=== PATIENT | female | born 1930 | race Caucasian/White ===

== ENCOUNTER 2017-12-20 16:03 | Emergency (ER) | payer OTHER ==
--- NOTE | 2017-12-20 16:49 | PDOC ---
Rapid Medical Evaluation Time Seen by Provider: 12/20/17 16:46 Medical Evaluation: Allergies Allergy/AdvReac Type Severity Reaction Status Date / Time Penicillins Allergy Verified 12/16/13 08:57 12/20/17 16:46 This 87 with c/o LUQ abd pain that started this AM. She has + bm this am that was hard Belly firm and slight pain. ordered AXR Pt sent to ER for evaluation
[2017-12-20 16:53] VITALS: BP 132/75; PULSE 81; TEMP 98.4; BMI 24.2
[2017-12-20 19:57] LABS: BASO % 0.4 % (0-2.0); EOS % 0.8 % (0-4.5); HEMATOCRIT 33.9 % (32.4-45.2); HEMOGLOBIN 11.5 GM/dL (10.7-15.3); LYMPH % 25.5 % (8-40); MEAN CELL VOLUME 88.2 fl (80-96); MEAN PLT VOLUME 7.9 fl (7.5-11.1); MONO % 9.3 % (3.8-10.2); PLATELET COUNT 389 K/MM3 (134-434); RBC 3.84 M/mm3 (3.60-5.2); RDW 15.4 % (11.6-15.6); WHITE BLOOD COUNT 7.3 K/mm3 (4.0-10.0)
[2017-12-20] MEDS ORDERED: DOCUSATE SODIUM 100 MG CAPSULE (FP) PO ONE ×2 (19:57→21:12)
[2017-12-20 20:36] LABS: ALBUMIN 3.7 g/dl (3.4-5.0); ALK PHOS 102 U/L (45-117); ANION GAP 5 (8-16); BILIRUBIN,TOTAL 0.4 mg/dL (0.2-1.0); BLOOD UREA NITROGEN 21 mg/dL (7-18); CALCIUM 9.1 mg/dL (8.5-10.1); CHLORIDE 106 mmol/L (98-107); CO2 28 mmol/L (21-32); CREATININE 1.1 mg/dL (0.55-1.02); GLUCOSE,RANDOM 89 mg/dL (74-106); LIPASE 145 U/L (73-393); POTASSIUM 4.5 mmol/L (3.5-5.1); SGOT/AST 18 U/L (15-37); SGPT/ALT 22 U/L (12-78); SODIUM 139 mmol/L (136-145); TOT PROT 7.4 g/dl (6.4-8.2)
--- NOTE | 2017-12-20 21:05 | PDOC ---
History of Present Illness - General Chief Complaint: Pain Stated Complaint: ABD PAIN Time Seen by Provider: 12/20/17 16:46 History Source: Patient Exam Limitations: No Limitations - History of Present Illness Travel History: No Initial Comments: 12/20/17 21:06 Best Contact: Shabana/Marielena [phone] Pmhx: Pancreas disorder/chronic constipation Pshx: 1998: Appendectomy, over 40 years ago total abdominal hysterectomy with salpingectomy and oophorectomy Allergies: NO KNOWN DRUG ALLERGIES 87-year-old female presents to the emergency department with her granddaughter complaining of right lower abdominal discomfort. Pain is described as 4/10 dull nonradiating intermittent discomfort. Patient states she had a bowel movement at approximately 0800 hrs. this morning which was small and hard. Patient denies nausea/vomiting, fever/chills, chest pain, shortness of breath, flank pain, urinary symptoms: Frequency/urgency/hesitancy, hematuria. Patient claims she does not drink enough fluids on a daily basis. Past History - Past Medical History Allergies/Adverse Reactions: Allergies Allergy/AdvReac Type Severity Reaction Status Date / Time Penicillins Allergy Verified 12/20/17 16:52 Home Medications: Ambulatory Orders Atorvastatin Ca [Lipitor -] 20 mg PO HS 12/16/13 Ergocalciferol (Vitamin D2) [Vitamin D2] 50,000 unit PO WEEKLY 12/16/13 Esomeprazole Mag Trihydrate [Nexium] 40 mg PO DAILY 12/16/13 Ibuprofen [Motrin -] 600 mg PO TID 12/16/13 Montelukast Na [Singulair -] 10 mg PO HS 12/16/13 Oxycodone HCl/Acetaminophen [Percocet 5-325 mg Tablet -] 1 - 2 tab PO Q6H #10 tablet 12/16/13 Solifenacin Succinate [Vesicare] 10 mg PO DAILY 12/16/13 Valsartan [Diovan] 80 mg PO DAILY 12/16/13 Asthma: Yes COPD: No GI Disorders: Yes (GERD) HTN: Yes Hypercholesterolemia: Yes - Surgical History Appendectomy: Yes - Suicide/Smoking/Psychosocial Hx Smoking History: Never smoked Have you smoked in the past 12 months: No Information on smoking cessation initiated: No Hx Alcohol Use: No Drug/Substance Use Hx: No Substance Use Type: None Review of Systems - Review of Systems Able to Perform ROS?: Yes Comments:: 12/20/17 21:09 CONSTITUTIONAL: Absent: fever, chills, diaphoresis, generalized weakness, malaise, loss of appetite HEENT: Absent: rhinorrhea, nasal congestion, throat pain, throat swelling, difficulty swallowing, mouth swelling, ear pain, eye pain, visual Changes CARDIOVASCULAR: Absent: chest pain, loss of consciousness, palpitations, irregular heart rate, peripheral edema RESPIRATORY: Absent: cough, shortness of breath, dyspnea with exertion, orthopnea, wheezing, stridor, hemoptysis GASTROINTESTINAL: +constipation Absent: abdominal pain, abdominal distension, nausea, vomiting, diarrhea, melena , hematochezia GENITOURINARY: Absent: dysuria, frequency, urgency, hesitancy, hematuria, flank pain, genital pain MUSCULOSKELETAL: Absent: myalgia, arthralgia, joint swelling SKIN: Absent: rash, itching, pallor Is the patient limited Chinese proficient: No *Physical Exam - Vital Signs Last Vital Signs Temp Pulse Resp BP Pulse Ox 98.4 F 81 16 132/75 97 12/20/17 16:48 12/20/17 16:48 12/20/17 16:48 12/20/17 16:48 12/20/17 16:48 - Physical Exam Comments: 12/20/17 21:10 GENERAL: Well developed, well nourished. Awake and alert. No acute distress. HEENT: Normocephalic, atraumatic. PERRLA, EOMI. No conjunctival pallor. Sclera are non- icteric. Moist mucous membranes. Oropharynx is clear. NECK: Supple. Full ROM. No JVD. Carotid pulses 2+ and symmetric, without bruits. No thyromegaly. No lymphadenopathy. CARDIOVASCULAR: Regular rate and rhythm. No murmurs, rubs, or gallops. Distal pulses are 2+ and symmetric. PULMONARY: No evidence of respiratory distress. Lungs clear to auscultation bilaterally. No wheezing, rales or rhonchi. ABDOMINAL: Soft. Non-tender. Non-distended. No rebound or guarding. No organomegaly. Normoactive bowel sounds. MUSCULOSKELETAL Normal range of motion at all joints. No bony deformities or tenderness. No CVA tenderness. ED Treatment Course - LABORATORY CBC & Chemistry Diagram: 12/20/17 19:49 12/20/17 19:49 - ADDITIONAL ORDERS Additional order review: Laboratory Results 12/20/17 19:49 Sodium 139 Potassium 4.5 Chloride 106 Carbon Dioxide 28 Anion Gap 5 L BUN 21 H Creatinine 1.1 H Creat Clearance w eGFR 46.77 Random Glucose 89 Calcium 9.1 Total Bilirubin 0.4 AST 18 ALT 22 Alkaline Phosphatase 102 Total Protein 7.4 Albumin 3.7 Lipase 145 12/20/17 19:49 RBC 3.84 MCV 88.2 MCHC 34.0 RDW 15.4 MPV 7.9 Neutrophils % 64.0 Lymphocytes % 25.5 Monocytes % 9.3 Eosinophils % 0.8 Basophils % 0.4 - RADIOLOGY Radiograph Interpretation: 12/20/17 21:10 XRay 1v abd Flat and upright; copious stool Medical Decision Making - Medical Decision Making 12/20/17 21:10 Patient refuses CAT scan with abdomen and pelvis. Patient states she has a history of chronic constipation which feels the same this evening. Patient was informed to take Colace 100 mg twice a day when necessary. Patient is to follow with her GI doctor. Patient is aware if pain persists worsens or becomes severe she is to return back to the emergency department for CT of her abdomen and pelvis with by mouth and IV contrast *DC/Admit/Observation/Transfer Diagnosis at time of Disposition: Constipation Qualifiers: Constipation type: unspecified constipation type Qualified Code(s): K59.00 - Constipation, unspecified - Discharge Dispostion Condition at time of disposition: Stable Admit: No - Referrals Referrals: Monroe Garcia MD [Primary Care Provider] - Ariel Erazo MD [Staff Physician] - - Patient Instructions Printed Discharge Instructions: DI for Constipation Additional Instructions: Increase fluids Colace 100mg take 1 tablet twice a day as needed Follow up with the Generator Repairer/Dr. Erazo within 48 hours Return to the ER for severe/persistent/worsening symptoms - Post Discharge Activity
== END 2017-12-20 21:11 | disposition home or self-care (01) ==
LOC: JER 16:03
DX: K59.09 Other constipation (principal); I10 Essential (primary) hypertension; E78.00 Pure hypercholesterolemia, unspecified; K21.9 Gastro-esophageal reflux disease without esophagitis; J45.909 Unspecified asthma, uncomplicated
CPT/HCPCS: 36415; 74018-TC-FY; 80053; 83690; 85025; 99281-25